=== PATIENT | male | born 1985 | race Caucasian/White ===

== ENCOUNTER 2018-05-06 20:30 | Emergency (ER) | payer BC, MEDICAID ==
[~2018-05-06] VITALS: Ht 185.4 cm; Wt 90.3 kg
[2018-05-06] MEDS ORDERED: ondansetron 4mg rapidly disintigrating tab PO ONE (21:35)
[2018-05-06] MEDS ORDERED: magnesium oxide 400mg tablet PO ONE (21:50)
[2018-05-06 21:54] LABS: BASOPHILS # (AUTO) 0.1 X10'3 (0-0.2); BASOPHILS % (AUTO) 1.4 % (0-1); EOSINOPHILS # (AUTO) 0.2 X10'3 (0-0.9); EOSINOPHILS % (AUTO) 3.6 % (0-6); HEMATOCRIT 40.7 % (42.0-52.0); HEMOGLOBIN 13.8 g/dl (14.0-17.9); LYMPHOCYTES # (AUTO) 1.5 X10'3 (1.1-4.8); LYMPHOCYTES % (AUTO) 25.9 % (21-51); MEAN CORPUSCULAR HEMOGLOBIN 28.2 PG (27.0-31.0); MEAN CORPUSCULAR HGB CONC 33.8 % (33.0-36.5); MEAN CORPUSCULAR VOLUME 83.4 FL (78-98); MEAN PLATELET VOLUME 7.1 FL (7.4-10.4); MONOCYTES # (AUTO) 0.6 X10'3 (0-0.9); MONOCYTES % (AUTO) 11.3 % (2-12); NEUTROPHILS # (AUTO) 3.2 X10'3 (1.8-7.7); NEUTROPHILS % (AUTO) 57.8 % (42-75); PLATELET COUNT 339 X10'3 (140-440); RED BLOOD COUNT 4.88 X10'6 (4.70-6.10); RED CELL DISTRIBUTION WIDTH 13.1 % (11.5-14.5); WHITE BLOOD COUNT 5.6 X10'3 (4.5-11.0)
[2018-05-06 22:01] VITALS: BP 163/93
[2018-05-06 22:10] LABS: ALANINE AMINOTRANSFERASE 35 U/L (12-78); ALBUMIN 3.4 G/DL (3.4-5.0); ALBUMIN/GLOBULIN RATIO 0.9 (1.1-1.5); ALKALINE PHOSPHATASE 71 IU/L (46-116); ANION GAP 8 (8-16); ASPARTATE AMINO TRANSFERASE 25 U/L (10-37); BILIRUBIN,TOTAL 0.2 MG/DL (0.1-1.0); BLOOD UREA NITROGEN 12 MG/DL (7-18); BUN/CREATININE RATIO 13.3 (5.4-32.0); CALCIUM 8.4 MG/DL (8.5-10.1); CHLORIDE 103 MMOL/L (99-107); ETHANOL 0.099 GM/DL (0.0-0.010); GLUCOSE 108 MG/DL (70-104); LIPASE 104 U/L (73-393); MAGNESIUM 1.7 MG/DL (1.5-2.4); POTASSIUM 3.8 MMOL/L (3.5-5.1); SODIUM 140 MMOL/L (135-145); TOTAL CARBON DIOXIDE 28.6 MMOL/L (24-32); TOTAL PROTEIN 7.3 G/DL (6.4-8.2); eGFR > 90 ML/MIN
[2018-05-06 22:12] LABS: INR 0.9 INR; PARTIAL THROMBOPLASTIN TIME 26 SECONDS (22-32); PROTHROMBIN TIME 9.4 SECONDS (9.0-12.0)
== END 2018-05-06 22:21 | disposition home or self-care (01) ==
LOC: ER 20:32
DX: K92.1 Melena (principal); F17.200 Nicotine dependence, unspecified, uncomplicated; Z98.890 Other specified postprocedural states
CPT/HCPCS: 36415; 80053; 80320; 83690; 83735; 85025; 85610; 85730; 99284

== ENCOUNTER 2025-02-01 01:09 | Emergency (ER) | payer BC ==
[~2025-02-01] VITALS: Ht 182.9 cm; Wt 98.9 kg
[2025-02-01 01:10] VITALS: BP 130/82
[2025-02-01 02:16] LABS: MEAN PLATELET VOLUME 8.4 FL (7.4-10.4); RED CELL DISTRIBUTION WIDTH 15.0 % (11.5-14.5)
[2025-02-01 02:34] LABS: CREATININE 0.68 MG/DL (0.60-1.10); TOTAL CARBON DIOXIDE 24.6 MMOL/L (24-32); eCRCL 159 ML/MIN; eGFR > 90 ML/MIN
--- NOTE | 2025-02-01 02:37 | Physician Documentation ---
History of Present Illness ~ Chief Complaint: Abdominal Pain Stated Complaint: SWOLLEN LEGS/RASH Time Seen by MD: 01:24 Mode of Arrival: POV HPI Patient presents to the emergency room for evaluation of vague abdominal pain along with some rash that has in his bilateral ankles. No prior instances. Rashes more painful than pruritic. He states that has bilateral ankles develop ed this the same time. He also has an appointment with his doctor later today for these symptoms but he is looking up things on the Internet and mentioned to clots therefore he came in to be evaluated. No shortness of breath or chest pain. He is concerned he may have an STD. Medication Reconciliation Allergies: Coded Allergies: No Known Allergies (Unverified , 02/01/25) Past Medical History Past Medical History: No Pertinent History Past Surgical History: orthopedic surgeries Alcohol Use: Heavy Drug Use: none Lives In: Home Review of Systems ROS All review of systems negative except as per HPI Physical Exam Vital Signs: Temperature: 98.6, Source: Oral, Heart Rate: 91, Respiratory Rate: 16, BP: 130/82, Pulse Oximetry: 99, Weight: 98.900 Oxygen Flow Rate: 0 Physical Exam General: Patient is awake, alert, oriented x4 in no acute distress Head: Normocephalic and atraumatic. Eyes: Conjunctival normal. EOMI. PERRL. ENT: Mucous membranes moist. Neck: Supple, trachea is midline. Chest: Clear to auscultation bilaterally without rales, rhonchi, or wheezes. There is no accessory muscle use or retractions. Cardiac: RRR without murmurs, gallops, or rubs. Abd: Soft, nondistended, nontender, with normoactive bowel sounds. No guarding, rebound, or rigidity. Extremities: Normal strength. Normal range of motion. Nonblanching rash to the medial aspect of patient's right ankle measuring 10 cm x 5 cm along with painful discoloration of patient's left lateral malleolus. Progress Results/Orders Results/Orders Orders - KRIS WHITAKER MD Straight Cath For Urine Sample (02/01/25 01:24) Culture Blood (02/01/25 01:24) Chlam/Gc Amp Ur (02/01/25 02:37) Completed Orders - KRIS WHITAKER MD Cbc/Diff (02/01/25 01:24) BMP (02/01/25 01:24) Lipase (02/01/25 01:24) CMP (02/01/25 01:24) Procalcitonin (02/01/25 01:24) Lacticsepsis (02/01/25 01:24) Drug Screen, Urine (02/01/25 02:37) ESR (02/01/25 02:40) Ua W/Microscopic, Cult If Ind (02/01/25 02:39) Vital Signs 02/01/25 02/01/25 01:10 01:41 Temp 98.6 Pulse 91 Resp 18 16 B/P (MAP) 130/82 Pulse Ox 99 O2 Flow Rate 0 Laboratory Tests Test 02/01/25 01:40 02/01/25 02:39 White Blood Count 8.9 Red Blood Count 4.95 Hemoglobin 13.8 L Hematocrit 40.4 L Mean Corpuscular Volume 81.6 Mean Corpuscular Hemoglobin 27.8 Mean Corpuscular Hemoglobin Concent 34.1 Red Cell Distribution Width 15.0 H Platelet Count 234 Mean Platelet Volume 8.4 Neutrophils (%) (Auto) 68.2 Lymphocytes (%) (Auto) 17.9 L Monocytes (%) (Auto) 10.7 Eosinophils (%) (Auto) 2.7 Basophils (%) (Auto) 0.5 Neutrophils # (Auto) 6.1 Lymphocytes # (Auto) 1.6 Monocytes # (Auto) 0.9 Eosinophils # (Auto) 0.2 Basophils # (Auto) 0.0 CBC Comment Erythrocyte Sedimentation Rate 13 Sodium Level 136 Potassium Level 3.5 Chloride Level 103 Carbon Dioxide Level 24.6 Anion Gap 8 Blood Urea Nitrogen 16 Creatinine 0.68 Estimated GFR/1.73 m2 > 90 BUN/Creatinine Ratio 23.5 H Glucose Level 96 Lactic Acid Level 0.7 Calcium Level 8.2 L Total Bilirubin 0.7 Aspartate Amino Transf (AST/SGOT) 22 Alanine Aminotransferase (ALT/SGPT) 47 Alkaline Phosphatase 86 Total Protein 7.0 Albumin 3.3 L Globulin 3.7 Albumin/Globulin Ratio 0.9 L Lipase 32 Procalcitonin < 0.05 Chemistry Comments Urine Specimen Description Non-specified Urine Color Straw Urine Clarity Clear Urine pH 6.0 Urine Specific [place] 1.025 Urine Protein Trace Urine Glucose (UA) Negative Urine Ketones 15 H Urine Occult Blood Negative Urine Nitrite Negative Urine Bilirubin Small Urine Urobilinogen 0.2 Urine Leukocyte Esterase Negative Urine RBC 0-2 Urine WBC 0-4 Urine Squamous Epithelial Cells Moderate Urine Bacteria None seen Urine Mucus Many Urine Sperm Moderate Urine Culture Indicated Not ind Volume Urine Centrifuged 10 ml Urine Comment Urine Opiates Screen Negative Urine Methadone Screen Negative Urine Fentanyl Screen Negative Urine Barbiturates Screen Negative Urine Phencyclidine Screen Negative Urine Amphetamines Screen Positive Urine Benzodiazepines Screen Negative Urine Cocaine Screen Negative Urine Cannabinoids Screen Negative Drug Screen Comment Medical Decision Making Findings Patient presents to the emergency room with rash as per HPI as well as abdominal pain. Differentials include but are not limited to appendicitis diverticulitis pancreatitis UTI constipation cellulitis therefore emergent labs ordered which were reassuring patient upon re-evaluation is sleeping comfortably and and he had not feel he requires a CT scan of his abdomen. He has excellent follow up. We will treat his rash in his feet for cellulitis given risks versus benefits. Departure Disposition: HOME / SELF CARE / HOMELESS Impression: Primary Impression: Abdominal pain Additional Impression: Cellulitis Condition: Stable Discharge Instructions: Cellulitis, Adult, [id number] Additional Instructions: Follow up with your doctor later today as scheduled. Your labs including a complete blood count and complete metabolic panel were all reassuring including your urinalysis. Cultures for STDs we will take three days. If you do not hear from us the cultures were negative Referrals: NO PRIMARY CARE PROVIDER (PCP) Prescriptions Cephalexin*Monohydrate* (Keflex*) 500 Mg Capsule 1 CAP PO Q12H for 10 Days, #20 CAP Prov: KRIS WHITAKER MD 02/01/25 Education Educated: Patient Educated regarding: diagnosis, treatment, need for follow up Signature Scribe Signature: No scribe Attestation: The note accurately reflects work and decisions made by me.Kris Whitaker MD 02/01/25 03:54 KRIS WHITAKER MD Feb 01, 2025 02:37
[2025-02-01 03:00] LABS: LEUKOCYTE ESTERASE ,URINE NEGATIVE (Neg); NITRITES, URINE NEGATIVE (Neg); OCCULT BLOOD,URINE NEGATIVE (Neg); UA COLLECTION TYPE NON-SPECIFIED
[2025-02-01 03:02] LABS: URINE AMPHETAMINE SCREEN POSITIVE (Neg); URINE BARBITUATE SCREEN NEGATIVE (Neg); URINE BENZODIAZEPINES SCREEN NEGATIVE (Neg); URINE CANNABINOID SCREEN NEGATIVE (Neg); URINE COCAINE SCREEN NEGATIVE (Neg); URINE METHADONE SCREEN NEGATIVE (Neg); URINE OPIATE SCREEN NEGATIVE (Neg); URINE PHENCYCLIDINE SCREEN NEGATIVE (Neg)
[2025-02-01 03:05] LABS: SQUAMOUS EPITHELIAL CELL,UR MODERATE /LPF (FEW)
[2025-02-01 03:06] LABS: MUCUS STRANDS MANY /LPF (Neg); SPERM MODERATE /HPF (NEGATIVE)
[2025-02-01] MEDS ORDERED: CEPH-585 PO (03:54)
[2025-02-01 04:20] VITALS: PULSE 82; RESP 12; TEMP 98.6; O2SAT 96
== END 2025-02-01 04:22 | disposition home or self-care (01) ==
LOC: ER 01:10
DX: L03.311 Cellulitis of abdominal wall (principal); F10.90 Alcohol use, unspecified, uncomplicated; Y90.9 Presence of alcohol in blood, level not specified
CPT/HCPCS: 36415; 80053; 80305; 81001; 83605; 83690; 84145; 85025; 85651; 87040; 87491; 99283